=== PATIENT | female | born 1965 | race Caucasian/White ===

== ENCOUNTER 2017-05-13 22:02 | Emergency (ER) | payer BC ==
[~2017-05-13] VITALS: Ht 160 cm; Wt 78.0 kg
[~2017-05-13 22:02] MED LIST: ATEN-102 PO; MOBI15TA PO; SPIR25TA PO; TRAM50 PO
[2017-05-13 22:13] VITALS: BP 132/87; PULSE 75; RESP 18; TEMP 98.7; O2SAT 97
[2017-05-13] MEDS ORDERED: SPIR50TA PO (22:27)
[2017-05-13] MEDS ORDERED: AMOX500T PO (22:29)
--- NOTE | 2017-05-13 22:42 | RADRPT ---
EXAM DATE/TIME: 05/13/2017 22:21 [place] COMPARISON: No previous studies available for comparison. INDICATIONS : Right foot pain after patient rolled their ankle today MEDICAL HISTORY : None. SURGICAL HISTORY : None. ENCOUNTER: Initial ACUITY: 1 day PAIN SCORE: 9/10 LOCATION: Right lateral foot FINDINGS: Three view examination of the right foot demonstrates no soft tissue swelling, dislocation, or fractu re. The tarsal bones appear intact. The interphalangeal and metatarsophalangeal joints are intact. The calcaneus is intact. Bony mineralization is normal. Plantar and posterior calcaneal enthesophy jef. CONCLUSION: 1. Calcaneal spurs. Darek Garcia MD on May 13, 2017 at 22:40 Board Certified Radiologist. This report was verified electronically.
--- NOTE | 2017-05-13 22:48 | PD ---
HPI Chief Complaint: Injury Time Seen by Provider: 22:23 Travel History International Travel<30 days: No Contact w/Intl Traveler<30days: No Traveled to known affect area: No History of Present Illness HPI 51-year-old female presents to the emergency room for evaluation of right foot pain and swelling after tripping just prior to arrival. Patient states she believes her right knee gave out causing her to twist her foot and fell backwards landing on her buttocks. She denies hitting her head or loss of consciousness.. Reports pain localized to the right lateral foot with radiation into the ankle. She was able to bear a small amount away at first but it is worsened over time. Denies paresthesias or any other injuries. Patient has not taken anything or done anything for her symptoms. She came straight to the emergency room. Only history of hypertension. PFSH Past Medical History Diminished Hearing: No Hypertension: Yes Menopausal: Yes Tubal Ligation: Yes (1993) Past Surgical History Section: Yes (1984) Cholecystectomy: Yes (MARCH 2012) Social History Alcohol Use: No Tobacco Use: No Substance Use: No Allergies-Medications (Allergen,Severity, Reaction): Coded Allergies: Codeine (Verified Adverse Reaction, Severe, Headache, 05/13/17) Lortab (Verified Adverse Reaction, Severe, Vomiting, 05/13/17) Tramadol (Verified Adverse Reaction, Severe, GI upset, 05/13/17) Reported Meds & Prescriptions Reported Meds & Active Scripts Active Ultram (Tramadol HCl) 50 Mg Tab 50 Mg PO Q6H PRN FOR PAIN Mobic (Meloxicam) 15 Mg Tab 15 Mg PO DAILY Reported Spironolactone 25 Mg Tab 25 Mg PO DAILY Atenolol 50 Mg Tab 50 Mg PO BID Review of Systems Except as stated in HPI: all other systems reviewed are Neg Physical Exam Narrative GENERAL: Well-nourished, well-developed female in no acute distress. Afebrile. SKIN: Focused skin assessment warm/dry. Moderate ecchymosis over the right lateral, dorsal foot. HEAD: Normocephalic. EYES: No scleral icterus. No injection or drainage. NECK: Supple, trachea midline. No JVD or lymphadenopathy. CARDIOVASCULAR: Regular rate and rhythm without murmurs, gallops, or rubs. RESPIRATORY: Breath sounds equal bilaterally. No accessory muscle use. MUSCULOSKELETAL: No cyanosis. Moderate edema over the right dorsal, lateral foot. 2+ dorsalis pedis pulse. Full range of motion of the foot with mild pain. Extreme tenderness to palpation over the right dorsal, lateral foot. Data Data Last Documented VS Vital Signs Date Time Temp Pulse Resp B/P Pulse Ox O2 Delivery O2 Flow Rate FiO2 05/13/17 22:13 98.7 75 18 132/87 97 Orders Foot, Complete (Blo3mus) (05/13/17 ) [facility] Medical Decision Making Medical Screen Exam Complete: Yes Emergency Medical Condition: Yes Medical Record Reviewed: Yes Differential Diagnosis Muscle spasm, strain, fracture, sprain Narrative Course 51-year-old female presents to the emergency room for evaluation of right lateral foot pain and swelling after injury earlier today. Patient twisted her foot and has severe pain in her right lateral metatarsal foot with moderate edema and ecchymosis. There is extreme tenderness to palpation. Right foot is neurovascularly intact. X-rays negative. Likely foot sprain. Patient placed in Juan Carlos wrap and told to follow up with a primary care physician for repeat x- ray in 1 week if symptoms persist. Return for worsening symptoms. She understands and agrees to plan. Diagnosis Primary Impression: Right foot sprain Qualified Code: S93.601A - Right foot sprain, initial encounter Referrals: Primary Care Physician Patient Instructions: Foot Fracture in Adults (ED), General Instructions Additional Instructions: Rest and drink plenty of fluids. Juan [place] wrap as needed for pain. Take ibuprofen with food as directed, as needed for pain. Apply ice to the affected area for 20 minutes at a time, as needed for pain and swelling. Follow-up with a primary care physician. Return to the emergency room for worsening symptoms. Med/Other Pt SpecificInfo: Prescription(s) given Disposition: 01 DISCHARGE HOME Condition: Stable Samaria Flores May 13, 2017 22:48
== END 2017-05-13 22:55 | disposition home or self-care (01) ==
LOC: PHEFT 22:02
DX: S93.601A Unspecified sprain of right foot, initial encounter (principal); W01.0XXA Fall on same level from slipping, tripping and stumbling without subsequent striking against object, initial encounter
CPT/HCPCS: 73630; 99283